=== PATIENT | female | born 1995 | race Hispanic/Latino ===

== ENCOUNTER 2020-09-14 14:28 | Emergency (ER) | payer SELFPAY ==
[~2020-09-14] VITALS: Ht 144.8 cm; Wt 46.7 kg
[2020-09-14 14:53] VITALS: BP 101/73
[2020-09-14] MEDS ORDERED: PRED20TA3 PO (15:54)
[2020-09-14] MEDS ORDERED: DIPH25 PO (15:54)
[2020-09-14 16:12] VITALS: BP 114/75
[2020-09-15] MEDS ORDERED: IVER3TAB PO (17:23)
== END 2020-09-14 16:15 | disposition home or self-care (01) ==
LOC: EDH 14:28
DX: T78.49XA Other allergy, initial encounter (principal); X58.XXXA Exposure to other specified factors, initial encounter

== ENCOUNTER 2020-09-15 15:18 | Emergency (ER) | payer SELFPAY ==
[~2020-09-15] VITALS: Ht 144.8 cm; Wt 46.7 kg
[~2020-09-15 15:18] MED LIST: DIPH25 PO; PRED20TA3 PO
[2020-09-15] MEDS ORDERED: IVER3TAB PO (17:23)
[2020-09-15 17:35] VITALS: BP 122/68
== END 2020-09-15 17:29 | disposition home or self-care (01) ==
LOC: EDH 15:18
DX: B86 Scabies (principal); F41.9 Anxiety disorder, unspecified; F31.9 Bipolar disorder, unspecified

== ENCOUNTER 2021-12-04 20:51 | Emergency (ER) | payer OTHER ==
[~2021-12-04] VITALS: Ht 144.8 cm; Wt 51.7 kg
[~2021-12-04 20:51] MED LIST changes: +IVER3TAB PO
[2021-12-04 20:54] VITALS: BP 100/67
[2021-12-04] MEDS ORDERED: CLIN-141 PO (21:14)
[2021-12-04] MEDS ORDERED: IBUP-1554 PO (21:14)
[2021-12-04] MEDS ORDERED: CLINDAMYCIN 150 MG CAP PO ONE (21:30)
[2021-12-04] MEDS ORDERED: HYDROCODONE/ACETAMINOPHEN 5/325 MG TAB PO ONE (21:30)
== END 2021-12-04 21:29 | disposition home or self-care (01) ==
LOC: EDH 20:51
DX: L73.8 Other specified follicular disorders (principal); Z79.52 Long term (current) use of systemic steroids